=== PATIENT | male | born 1940 | race Caucasian/White ===

== ENCOUNTER 2021-04-22 16:51 | Inpatient (IN) | payer MEDICARE, OTHER ==
[2021-04-22] MEDS ORDERED: SODIUM CHLORIDE 0.9% 1,000 ML IV STA (17:31)
--- NOTE | 2021-04-22 18:13 | XR ---
EXAMINATION TYPE: XR chest 2V DATE OF EXAM: 04/22/2021 COMPARISON: NONE HISTORY: Weakness and abdominal pain. TECHNIQUE: Frontal and lateral views of the chest are obtained. FINDINGS: There is mild prominence of the interstitial markings. No focal consolidation pleural effu sarahi, or pneumothorax seen. The cardiac silhouette size is mildly enlarged. The osseous structures are intact. IMPRESSION: Mild interstitial edema versus atelectasis.
--- NOTE | 2021-04-22 18:15 | XR ---
EXAM: Abdomen radiograph. HISTORY: Pain. TECHNIQUE: Supine AP view. COMPARISON: None available FINDINGS: There are nondilated bowel loops with a nonobstructive pattern. There are no pathologic calcification s. No acute osseous abnormality seen. Cholecystectomy clips and atherosclerotic calcifications seen. Small to moderate amount of colonic stool. IMPRESSION: Stool burden. Otherwise no acute process.
--- NOTE | 2021-04-22 18:29 | ED ---
Recheck HPI - General Chief Complaint: Recheck/Abnormal Lab/Rx Stated Complaint: Weakness, periods of unresponsive, parkinsons Time Seen by Provider: 04/22/21 17:29 Source: patient, RN notes reviewed Mode of arrival: wheelchair Limitations: no limitations - History of Present Illness Initial Comments: Patient is an 81-year-old male that presents to the emergency department complaining of generalized weakness and constipation. Patient was recently seen at [facility] where he was admitted for several days for constipation. He was discharged home with stool softeners and then he went back for the same complaint. They noted that they gave more stool softeners and some home again. Notes that they brought him here to get a second opinion and reevaluation. Patient was otherwise well-appearing. He did have a history of Parkinson's which she goes to [facility] for. She denied any other issues or complaints. He was resting comfortably in bed. He denied chest pain shortness of breath headache nausea vomiting diarrhea fever fatigue chills. - Related Data Home Medications Medication Instructions Recorded Confirmed Amoxicillin 875 mg PO BID 04/22/21 04/22/21 Aspirin EC [Ecotrin Low Dose] 81 mg PO DAILY 04/22/21 04/22/21 Carbidopa-Levodopa 25-100 mg 2.5 tab PO QID 04/22/21 04/22/21 [Sinemet 25-100] Ibuprofen [Motrin] 600 mg PO Q6H PRN 04/22/21 04/22/21 Insulin Glargine,Hum.rec.anlog 16 unit SQ DAILY 04/22/21 04/22/21 [Lantus Solostar Pen] Lisinopril [Zestril] 10 mg PO DAILY 04/22/21 04/22/21 Multivit-Min/FA/Lycopen/Lutein 1 tab PO DAILY 04/22/21 04/22/21 [Centrum Silver Men Tablet] Pioglitazone HCl 15 mg PO DAILY 04/22/21 04/22/21 Tamsulosin HCl [Flomax] 0.4 mg PO DAILY 04/22/21 04/22/21 bisacodyL [Dulcolax] 10 mg PO DAILY PRN 04/22/21 04/22/21 metFORMIN HCL ER [Glucophage XR] 1,000 mg PO BID 04/22/21 04/22/21 Allergies Allergy/AdvReac Type Severity Reaction Status Date / Time honey Allergy Unknown Verified 04/22/21 17:09 scallops Allergy Unknown Verified 04/22/21 17:09 Review of Systems ROS Statement: Those systems with pertinent positive or pertinent negative responses have been documented in the HPI. ROS Other: All systems not noted in ROS Statement are negative. Past Medical History Past Medical History: Diabetes Mellitus Additional Past Medical History / Comment(s): parkinsons disease History of Any Multi-Drug Resistant Organisms: None Reported Past Surgical History: Cholecystectomy Past Psychological History: No Psychological Hx Reported Smoking Status: Never smoker Past Alcohol Use History: None Reported Past Drug Use History: None Reported General Exam Limitations: no limitations General appearance: alert, in no apparent distress Head exam: Present: atraumatic, normocephalic, normal inspection Eye exam: Present: normal appearance, PERRL, EOMI. Absent: scleral icterus, conjunctival injection, periorbital swelling ENT exam: Present: normal exam, mucous membranes moist Neck exam: Present: normal inspection Respiratory exam: Present: normal lung sounds bilaterally. Absent: respiratory distress, wheezes, rales, rhonchi, stridor Cardiovascular Exam: Present: regular rate, normal rhythm, normal heart sounds. Absent: systolic murmur, diastolic murmur, rubs, gallop, clicks GI/Abdominal exam: Present: soft, tenderness (Generalized throughout), normal esther wel sounds. Absent: distended, guarding, rebound, rigid Extremities exam: Present: normal inspection, full ROM, normal capillary refill. Absent: tenderness, pedal edema, joint swelling, calf tenderness Neurological exam: Present: alert, oriented X3 Psychiatric exam: Present: normal affect, normal mood Skin exam: Present: warm, dry, intact, normal color. Absent: rash Course Vital Signs 04/22/21 17:09 Temperature 98.9 F Pulse Rate 63 Respiratory 20 Rate Blood Pressure 179/74 O2 Sat by Pulse 96 Oximetry Medical Decision Making - Medical Decision Making 81-year-old male complaining of generalized weakness and constipation. Labs, KUB, chest x-ray, 1 L normal saline ordered. labs today are unremarkable. Chest x-ray shows no acute cardiopulmonary process. KUB shows stool burden but nonobstructive bowel gas pattern. Results and reports requested from [facility]. Reports from [facility] arrived. CT of the head and brain without contrast shows no acute intracranial abnormality. Chest x-ray shows no acute cardiopulmonary abnormality. CT of the abdomen and pelvis shows constipation with rectal fecal impaction. Appendix not seen. No sign of thickened appendix. Mild subsegmental atelectasis and scarring at the lung bases. Labs show labs within normal limits. All these results were from 04/10/2021 and 04/20/[address] Lujan, patient will be admitted per - Lab Data Result diagrams: 04/22/21 18:29 04/22/21 18:29 Lab Results 04/22/21 04/22/21 04/22/21 Range/Units 18:29 18:29 18:29 WBC 8.6 (3.8-10.6) k/uL RBC 5.09 (4.30-5.90) m/uL Hgb 15.6 (13.0-17.5) gm/dL Hct 46.5 (39.0-53.0) % MCV 91.4 (80.0-100.0) fL MCH 30.7 (25.0-35.0) pg MCHC 33.6 (31.0-37.0) g/dL RDW 12.8 (11.5-15.5) % Plt Count 217 (150-450) k/uL MPV 6.9 Neutrophils % 79 % Lymphocytes % 12 % Monocytes % 6 % Eosinophils % 3 % Basophils % 0 % Neutrophils # 6.8 (1.3-7.7) k/uL Lymphocytes # 1.0 (1.0-4.8) k/uL Monocytes # 0.5 (0-1.0) k/uL Eosinophils # 0.2 (0-0.7) k/uL Basophils # 0.0 (0-0.2) k/uL PT 9.8 (9.0-12.0) sec INR 0.9 (<1.2) APTT 22.2 (22.0-30.0) sec Sodium (137-145) mmol/L Potassium (3.5-5.1) mmol/L Chloride (98-107) mmol/L Carbon Dioxide (22-30) mmol/L Anion Gap mmol/L BUN (9-20) mg/dL Creatinine (0.66-1.25) mg/dL Est GFR (CKD-EPI)AfAm (>60 ml/min/1.73 sqM) Est GFR (CKD-EPI)NonAf (>60 ml/min/1.73 sqM) Glucose (74-99) mg/dL Plasma Lactic Acid Cricket (0.7-2.0) mmol/L Calcium (8.4-10.2) mg/dL Magnesium (1.6-2.3) mg/dL Total Bilirubin (0.2-1.3) mg/dL AST (17-59) U/L ALT (4-49) U/L Alkaline Phosphatase (38-126) U/L Troponin I (0.000-0.034) ng/mL Total Protein (6.3-8.2) g/dL Albumin (3.5-5.0) g/dL Urine Color Yellow Urine Appearance Clear (Clear) Urine pH 6.0 (5.0-8.0) Ur Specific [place] 1.035 (1.001-1.035) Urine Protein 2+ H (Negative) Urine Glucose (UA) Negative (Negative) Urine Ketones Negative (Negative) Urine Blood Trace H (Negative) Urine Nitrite Negative (Negative) Urine Bilirubin Negative (Negative) Urine Urobilinogen <2.0 (<2.0) mg/dL Ur Leukocyte Esterase Negative (Negative) Urine RBC 1 (0-5) /hpf Urine WBC <1 (0-5) /hpf Hyaline Casts 1 (0-2) /lpf Urine Mucus Rare H (None) /hpf 04/22/21 04/22/21 04/22/21 Range/Units 18:29 18:29 18:29 WBC (3.8-10.6) k/uL RBC (4.30-5.90) m/uL Hgb (13.0-17.5) gm/dL Hct (39.0-53.0) % MCV (80.0-100.0) fL MCH (25.0-35.0) pg MCHC (31.0-37.0) g/dL RDW (11.5-15.5) % Plt Count (150-450) k/uL MPV Neutrophils % % Lymphocytes % % Monocytes % % Eosinophils % % Basophils % % Neutrophils # (1.3-7.7) k/uL Lymphocytes # (1.0-4.8) k/uL Monocytes # (0-1.0) k/uL Eosinophils # (0-0.7) k/uL Basophils # (0-0.2) k/uL PT (9.0-12.0) sec INR (<1.2) APTT (22.0-30.0) sec Sodium 134 L (137-145) mmol/L Potassium 5.1 (3.5-5.1) mmol/L Chloride 97 L (98-107) mmol/L Carbon Dioxide 26 (22-30) mmol/L Anion Gap 11 mmol/L BUN 24 H (9-20) mg/dL Creatinine 0.85 (0.66-1.25) mg/dL Est GFR (CKD-EPI)AfAm >90 (>60 ml/min/1.73 sqM) Est GFR (CKD-EPI)NonAf 81 (>60 ml/min/1.73 sqM) Glucose 109 H (74-99) mg/dL Plasma Lactic Acid Cricket 1.0 (0.7-2.0) mmol/L Calcium 9.4 (8.4-10.2) mg/dL Magnesium 1.9 (1.6-2.3) mg/dL Total Bilirubin 0.9 (0.2-1.3) mg/dL AST 30 (17-59) U/L ALT 9 (4-49) U/L Alkaline Phosphatase 108 (38-126) U/L Troponin I <0.012 (0.000-0.034) ng/mL Total Protein 7.4 (6.3-8.2) g/dL Albumin 4.3 (3.5-5.0) g/dL Urine Color Urine Appearance (Clear) Urine pH (5.0-8.0) Ur Specific [place] (1.001-1.035) Urine Protein (Negative) Urine Glucose (UA) (Negative) Urine Ketones (Negative) Urine Blood (Negative) Urine Nitrite (Negative) Urine Bilirubin (Negative) Urine Urobilinogen (<2.0) mg/dL Ur Leukocyte Esterase (Negative) Urine RBC (0-5) /hpf Urine WBC (0-5) /hpf Hyaline Casts (0-2) /lpf Urine Mucus (None) /hpf - EKG Data -: EKG Interpreted by Pr EKG shows normal: sinus rhythm Rate: normal EKG Comments: Ventricular rate 61 bpm, CT interval 164 ms, QRS duration 90 ms, QTC 418 ms, PRT axes -12/-16/-3. Normal sinus rhythm, normal ECG. - Radiology Data Radiology results: report reviewed, image reviewed KUB shows stool burden. Otherwise no acute process. Chest x-ray: Mild interstitial edema versus atelectasis. Disposition Clinical Impression: Weakness, Confusion Disposition: ADMITTED IP TO THIS HOSP Condition: Stable Is patient prescribed a controlled substance at d/c from ED?: No Referrals: Sincree Ewing MD [Primary Care Provider] - 1-2 days Time of Disposition: 19:55
[2021-04-22 18:56] LABS: Appearance,Urine Clear (Clear); Bilirubin,Urine Negative (Negative); Blood,Urine Trace (Negative); Color,Urine Yellow; Glucose,Urine (UA) Negative (Negative); Hyaline Casts,Urine 1 /lpf (0-2); Ketones,Urine Negative (Negative); Leukocyte Esterase,Urine Negative (Negative); Mucus,Urine Rare /hpf; Nitrite,Urine Negative (Negative); Protein,Urine 2+ (Negative); RBC,Urine 1 /hpf (0-5); Specific Gravity,Urine 1.035 (1.001-1.035); Urobilinogen,Urine <2.0 mg/dL (<2.0); WBC,Urine <1 /hpf (0-5)
[2021-04-22 19:05] LABS: Basophils % (A) 0 %; Eosinophils # (A) 0.2 k/uL (0-0.7); Eosinophils % (A) 3 %; HCT 46.5 % (39.0-53.0); HGB 15.6 gm/dL (13.0-17.5); Lymphocytes % (A) 12 %; MCH 30.7 pg (25.0-35.0); MCHC 33.6 g/dL (31.0-37.0); MCV 91.4 fL (80.0-100.0); Mean Platelet Volume 6.9; Monocytes # (A) 0.5 k/uL (0-1.0); Monocytes % (A) 6 %; Neutrophils # (A) 6.8 k/uL (1.3-7.7); Neutrophils % (A) 79 %; Platelet Count 217 k/uL (150-450); RBC 5.09 m/uL (4.30-5.90); RDW 12.8 % (11.5-15.5); WBC 8.6 k/uL (3.8-10.6)
[2021-04-22 19:12] LABS: INR 0.9 (<1.2); Partial Thromboplastin Time 22.2 sec (22.0-30.0); Prothrombin Time 9.8 sec (9.0-12.0)
[2021-04-22 19:34] LABS: ALT 9 U/L (4-49); AST 30 U/L (17-59); African American GFR (CKD) >90 (>60 ml/min/1.73 sqM); Albumin 4.3 g/dL (3.5-5.0); Alkaline Phosphatase 108 U/L (38-126); Anion Gap 11 mmol/L; Blood Urea Nitrogen 24 mg/dL (9-20); Calcium 9.4 mg/dL (8.4-10.2); Carbon Dioxide 26 mmol/L (22-30); Chloride 97 mmol/L (98-107); Glucose 109 mg/dL (74-99); Magnesium 1.9 mg/dL (1.6-2.3); Non-African American GFR(CKD) 81 (>60 ml/min/1.73 sqM); Potassium 5.1 mmol/L (3.5-5.1); Sodium 134 mmol/L (137-145); Total Bilirubin 0.9 mg/dL (0.2-1.3); Total Protein 7.4 g/dL (6.3-8.2)
[2021-04-22] MEDS ORDERED: NALOXONE 0.4 MG/ML 1 ML VIAL IV PRN (19:51)
[2021-04-22] MEDS ORDERED: MORPHINE SULFATE 4 MG/ML SYRINGE IV PRN (19:51)
[2021-04-22] MEDS: SODIUM CHLORIDE 0.9% 1,000 ML IV SCH (20:15)
--- NOTE | 2021-04-22 20:40 | CT ---
EXAM: CT brain wo con CLINICAL HISTORY: Weakness. COMPARISON: None TECHNIQUE: Contiguous axial noncontrast images of the brain were obtained. Coronal and sagittal refor mats were generated and reviewed. Automated dose control was used for this exam. FINDINGS: There is no evidence for intracranial hemorrhage, mass effect or midline shift. There is mild white m atter disease and parenchymal volume loss. Ventricular size and configuration is within normal limits for degree of parenchymal volume. The paranasal sinuses are clear. The mastoid air cells are clear. No evidence for calvarial fracture. IMPRESSION: No acute intracranial abnormality.
[2021-04-23] MEDS ORDERED: IBUPROFEN 600 MG TAB PO PRN (01:47)
[2021-04-23] MEDS ORDERED: bisacodyL 5 MG TABLET.DR PO PRN (01:47)
[2021-04-23 02:38] LABS: Glucose,Whole Blood 93 mg/dL (75-99)
[2021-04-23] MEDS: SODIUM CHLORIDE 0.9% 1,000 ML IV SCH ×2 (05:16→15:10)
[2021-04-23 07:32] LABS: Glucose,Whole Blood 95 mg/dL (75-99)
[2021-04-23] MEDS ORDERED: lisinopriL 10 MG TAB PO SCH (09:00)
[2021-04-23] MEDS ORDERED: INSULIN DETEMIR (LEVEMIR) 100 UNIT/ML SYR SQ SCH (09:00)
[2021-04-23] MEDS: CARBIDOPA-LEVODOPA 25-100 MG 1 EACH TAB PO SCH ×4 (09:33→20:48)
[2021-04-23] MEDS: TAMSULOSIN 0.4 MG CAP.ER.24H PO SCH (09:34)
[2021-04-23] MEDS: metFORMIN 500 MG TAB PO SCH ×2 (09:34→20:49)
[2021-04-23] MEDS: PIOGLITAZONE 15 MG TAB PO SCH (09:34)
[2021-04-23] MEDS: MULTIVITAMINS, THERA 1 EACH TAB PO SCH (09:34)
[2021-04-23] MEDS: ASPIRIN 81 MG PO SCH (09:35)
[2021-04-23] MEDS: AMOXICILLIN 875 MG TAB PO SCH ×2 (09:35→20:48)
[2021-04-23 12:14] LABS: Glucose,Whole Blood 123 mg/dL (75-99)
[2021-04-23] MEDS ORDERED: ONDANSETRON 4 MG/2 ML VIAL IVP PRN (12:44)
[2021-04-23] MEDS ORDERED: CALCIUM CARBONATE 500 MG CHEWABLE PO PRN (12:44)
[2021-04-23] MEDS ORDERED: LACTULOSE 20 GM/30 ML CUP PO PRN (12:44)
[2021-04-23] MEDS ORDERED: LORazepam 0.5 MG TAB PO PRN (12:44)
[2021-04-23] MEDS ORDERED: MELATONIN 3 MG TABLET PO PRN (12:44)
--- NOTE | 2021-04-23 13:10 | P.CNNES ---
History of Present Illness Consult date: 04/23/21 Requesting physician: Michele Roberts Reason for Consult: Weakness, Parkinson's History of Present Illness: Patient is a 81-year-old male with history of Parkinson's disease came to the hospital yesterday at 4:51 PM for evaluation of generalized weakness and constipation. Patient states that he has not been feeling good and on for the last 2-3 days. He could not explain what he means by not feeling well. Denies any chest pain. Denies any numbness tingling any visual problems or dysphagia. No shortness of breath, chest pain, neck pain or low back pain. Patient does admit of having pain in back of the legs where he reports a pressure. Patient denies any stroke symptoms. Patient denies headache. Vital signs on arrival blood pressure 179/74, pulse rate 63 temperature 98.9. The blood pressure has been staying high around 192/81. Patient's blood test shows normal CBC, PT/PTT, sodium 134 potassium 5.1, normal renal functions. Hepatic panel is normal, troponin negative, UA negative. Tellez virus PCR ne gative. CT head showed no acute intracranial abnormality. I reviewed computed tomography scan of head, agree with the findings. Chest x-ray showed mild interstitial edema versus atelectasis. EKG with normal sinus rhythm. Patient's home medications include Flomax, aspirin 81 mg, insulin, Sinemet 25/100, 2.5 tablet 4 times a day, Actos, metformin, lisinopril, ibuprofen. Patient has history of diabetes for last 7-8 years. He has Parkinson's disease for 3 years. At present he lives with his . He has 3 kids. Denies any tobacco or alcohol use. Review of Systems As mentioned in HPI. All other review of systems reviewed and noncontributory. Patient does not use any assistive device. He does have a walker, but does not use it. Had fell 3 times over the last couple of years. The last fall was about 3 years ago. Past Medical History Past Medical History: Diabetes Mellitus Additional Past Medical History / Comment(s): parkinsons disease History of Any Multi-Drug Resistant Organisms: Unobtainable Past Surgical History: Cholecystectomy Past Psychological History: Unable to Obtain Smoking Status: Unknown if ever smoked Past Alcohol Use History: Unable to Obtain Past Drug Use History: Unable to Obtain Medications and Allergies Home Medications Medication Instructions Recorded Confirmed Type Amoxicillin 875 mg PO BID 04/22/21 04/22/21 History Aspirin EC [Ecotrin Low Dose] 81 mg PO DAILY 04/22/21 04/22/21 History Carbidopa-Levodopa 25-100 mg 2.5 tab PO QID 04/22/21 04/22/21 History [Sinemet 25-100] Ibuprofen [Motrin] 600 mg PO Q6H PRN 04/22/21 04/22/21 History Insulin Glargine,Hum.rec.anlog 16 unit SQ DAILY 04/22/21 04/22/21 History [Lantus Solostar Pen] Lisinopril [Zestril] 10 mg PO DAILY 04/22/21 04/22/21 History Multivit-Min/FA/Lycopen/Lutein 1 tab PO DAILY 04/22/21 04/22/21 History [Centrum Silver Men Tablet] Pioglitazone HCl 15 mg PO DAILY 04/22/21 04/22/21 History Tamsulosin HCl [Flomax] 0.4 mg PO DAILY 04/22/21 04/22/21 History bisacodyL [Dulcolax] 10 mg PO DAILY PRN 04/22/21 04/22/21 History metFORMIN HCL ER [Glucophage XR] 1,000 mg PO BID 04/22/21 04/22/21 History Allergies Allergy/AdvReac Type Severity Reaction Status Date / Time honey Allergy Unknown Verified 04/22/21 17:09 scallops Allergy Unknown Verified 04/22/21 17:09 Physical Examination - Vital Signs Vital Signs: Vital Signs Temp Pulse Pulse Resp BP BP BP 04/23/21 07:00 98.3 F 64 16 199/75 04/23/21 02:00 98.1 F 67 18 192/81 04/22/21 23:00 67 18 04/22/21 22:28 98.5 F 69 18 189/69 04/22/21 20:31 98.4 F 68 18 169/87 04/22/21 17:09 98.9 F 63 20 179/74 Pulse Ox 04/23/21 07:00 97 04/23/21 02:00 92 L 04/22/21 23:00 04/22/21 22:28 93 L 04/22/21 20:31 97 04/22/21 17:09 96 Intake and Output 04/22/21 04/23/21 04/23/21 22:59 06:59 14:59 Other: Voiding Method Diaper Diaper Incontinent # Voids 2 1 Weight 95.254 kg 95.254 kg Patient is an elderly male, in no acute distress. Patient is alert awake oriented to time place and person. Patient knows it is April, but could not come up with the year. States "I can't seem to focus". He knows his age and date of . Also knows that he is in [facility] in [facility] and name of the current president. Speech and language functions are normal. Patient has slightly nasal tone to his voice. Attention, concentration and fund of knowledge is adequate. On cranial examination, pupils are round and reacting to light, visual sherman are full on confrontation, extraocular muscles are intact with no nystagmus. Face is symmetric, tongue protrudes to the midline. Palatal elevation and sensation normal, hearing is slightly decreased and shoulder shrug normal, facial sensation normal. Shoulder shrug normal. On muscle strength testing, there is no pronator drift and the strength is normal in arms and legs distally and proximally. Deep tendon reflexes are trace in the upper limbs, 1+ in the lower limbs and plantars are flat. Sensory to touch is equal with no neglect. Cerebellar function showed no ataxia for [id number] testing. No dysdiadochokinesia. Tone is mildly increased bilaterally and bulk of muscles normal. No tremors at rest. Patient has very mild tremulousness for [id number] testing and of outstretched hands. Gait not checked. On general examination, there is no carotid bruit or murmur, S1-S2 audible. Abdomen is soft nontender. Chest is clear. Peripheral pulses are present. Patient has moderate peripheral edema. Results - Laboratory Findings CBC and BMP: 04/22/21 18:29 04/22/21 18:29 Abnormal Lab Findings: Abnormal Labs 04/22/21 04/22/21 18:29 18:29 Sodium 134 L Chloride 97 L BUN 24 H Glucose 109 H Urine Protein 2+ H Urine Blood Trace H Urine Mucus Rare H Assessment and Plan Assessment: * Parkinson's disease, stable at this time. Current examination reveals fairly controlled parkinsonian symptoms. * Generalized weakness, unclear etiology. Examination is nonfocal. Patient denies any focal symptoms. * Diabetes Plan: * Patient's Parkinson's is fairly well controlled. We will continue Sinemet 25/100, 2.5 tablets 4 times a day. * We will check B12, folate, TSH and hemoglobin A1c. * PT OT evaluate gait. * Continue aspirin 81 mg daily. * Thank you for the consult.
[2021-04-23] MEDS: PSYLLIUM HUSK 100% 6 GM PACKET PO SCH ×2 (13:45→20:47)
[2021-04-23] MEDS: LACTATED RINGERS 1,000 ML IV SCH (15:53)
--- NOTE | 2021-04-23 17:14 | P.HPIM ---
History of Present Illness H&P Date: 04/23/21 Chief Complaint: Weak and tired This is a pleasant 81-year-old patient, follows with Dr. Sincere Mcguire. Patient is brought into the ER by his family. Complaining of generalized weakness and constipation. Patient was recently admitted with [facility] where he was there for many days for constipation. He was discharged with stool softeners admin back to the same complaint. The family wanted to get a second opinion and reevaluation. Patient does have Parkinson's for which she goes to [facility]. Patient just feels a bit tired. Cc as decreased appetite. Denies any respiratory urinary symptoms. Patient somewhat forgetful. Does not know the year and does not bother there was a hospital for example. Denies any kind of distress. Does have a walker. Review of systems: GEN.: Tired EYES: None HEENT: None NECK: None RESPIRATORY: None CARDIOVASCULAR: None GASTROINTESTINAL: [Constipation GENITOURINARY: None MUSCULOSKELETAL: Joint pains LYMPHATICS: None HEMATOLOGICAL: None PSYCHIATRY: Forgetful NEUROLOGICAL: Uses a walker Past medical history to include: Parkinson's disease, diabetes mellitus type 2, cognitive impairment, uses a walker, BPH, hypertension Social history: Patient lives with spouse and daughter. Does have a walker. Denies smoking alcohol Family history: Patient cannot tell Physical examination: VITAL SIGNS: 98.3, 64, 16, 199/75, 97% on room air. GENERAL: BMI 28.5, sitting up chair, awake comfortable. EYES: Pupils equal. Conjunctiva normal. HEENT: External appearance of nose and ears normal, oral cavity grossly normal. NECK: JVD not raised; masses not palpable. HEART: First and second heart sounds are normal; no edema. LUNGS: Respiratory rate normal; clear to auscultation. ABDOMEN: Soft, nontender, liver spleen not palpable, no masses palpable. PSYCH: Patient knows his name, knows that in the hospital. Does not know the year. Not sure why he is here.l. MUSCULAR skeletal: Evidence of OA NEUROLOGICAL: [Cranial nerves grossly intact; no facial asymmetry, slow movement of limbs. No significant rigidity. Minimal tremor if any. LYMPHATICS: No lymph nodes palpable in the axilla and neck INVESTIGATIONS, reviewed in the clinical context: White count 8.6 hemoglobin 15.6 platelets 217 potassium 5.1 BUN 24 creatinine 0.85 Troponin I less than 0.012 Coronavirus [PCR]: Not detected EKG tracing personally reviewed by me-normal sinus rhythm. Rate 61 Chest x-ray film personally reviewed by me-cardiomegaly. Some interstitial markings Assessment and plan: -Acute on chronic medical debility possibly from Parkinson's disease. Get neurological opinion. PTOT. -Parkinson's disease Sinemet 12.5, 4 times a day -Chronic constipation. Patient has decreased oral intake. Encourage oral intake. 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 -BPH Flomax 0.4 mg daily -Diabetes mellitus type 2 Actos 50 mg daily, metformin ER thousand milligrams twice a day. We'll hold off patient's Lantus for now as she was running on the lower side. -Essential hypertension, uncontrolled Change in medications to Zestoretic 20/12.5, 1 tablet twice a day Consultation neurology. PTOT. Fall precautions. Resume home medications. Hold Levemir. Follow Accu-Cheks. No clinical evidence of any infection. Past Medical History Past Medical History: Diabetes Mellitus Additional Past Medical History / Comment(s): parkinsons disease History of Any Multi-Drug Resistant Organisms: Unobtainable Past Surgical History: Cholecystectomy Past Psychological History: Unable to Obtain Smoking Status: Unknown if ever smoked Past Alcohol Use History: Unable to Obtain Past Drug Use History: Unable to Obtain Medications and Allergies Home Medications Medication Instructions Recorded Confirmed Type Amoxicillin 875 mg PO BID 04/22/21 04/22/21 History Aspirin EC [Ecotrin Low Dose] 81 mg PO DAILY 04/22/21 04/22/21 History Carbidopa-Levodopa 25-100 mg 2.5 tab PO QID 04/22/21 04/22/21 History [Sinemet 25-100] Ibuprofen [Motrin] 600 mg PO Q6H PRN 04/22/21 04/22/21 History Insulin Glargine,Hum.rec.anlog 16 unit SQ DAILY 04/22/21 04/22/21 History [Lantus Solostar Pen] Lisinopril [Zestril] 10 mg PO DAILY 04/22/21 04/22/21 History Multivit-Min/FA/Lycopen/Lutein 1 tab PO DAILY 04/22/21 04/22/21 History [Centrum Silver Men Tablet] Pioglitazone HCl 15 mg PO DAILY 04/22/21 04/22/21 History Tamsulosin HCl [Flomax] 0.4 mg PO DAILY 04/22/21 04/22/21 History bisacodyL [Dulcolax] 10 mg PO DAILY PRN 04/22/21 04/22/21 History metFORMIN HCL ER [Glucophage XR] 1,000 mg PO BID 04/22/21 04/22/21 History Allergies Allergy/AdvReac Type Severity Reaction Status Date / Time honey Allergy Unknown Verified 04/22/21 17:09 scallops Allergy Unknown Verified 04/22/21 17:09 Physical Exam Vitals: Vital Signs Temp Pulse Pulse Resp BP BP BP 04/23/21 15:00 97.7 F 63 16 154/75 04/23/21 07:00 98.3 F 64 16 199/75 04/23/21 02:00 98.1 F 67 18 192/81 04/22/21 23:00 67 18 04/22/21 22:28 98.5 F 69 18 189/69 04/22/21 20:31 98.4 F 68 18 169/87 04/22/21 17:09 98.9 F 63 20 179/74 Pulse Ox 04/23/21 15:00 94 L 04/23/21 07:00 97 04/23/21 02:00 92 L 04/22/21 23:00 04/22/21 22:28 93 L 04/22/21 20:31 97 04/22/21 17:09 96 Intake and Output 04/23/21 04/23/21 04/23/21 06:59 14:59 22:59 Other: Voiding Method Diaper Diaper Incontinent # Voids 2 1 2 Weight 95.254 kg Results CBC & Chem 7: 04/22/21 18:29 04/22/21 18:29 Labs: Abnormal Lab Results - Last 24 Hours (Table) 04/22/21 04/22/21 04/23/21 Range/Units 18:29 18:29 12:12 Sodium 134 L (137-145) mmol/L Chloride 97 L (98-107) mmol/L BUN 24 H (9-20) mg/dL Glucose 109 H (74-99) mg/dL POC Glucose (mg/dL) 123 H (75-99) mg/dL Urine Protein 2+ H (Negative) Urine Blood Trace H (Negative) Urine Mucus Rare H (None) /hpf Thrombosis Risk Factor Assmnt - Choose All That Apply Each Factor Represents 1 point: Obesity (BMI >25) Each Risk Factor Represents 3 Points: Age 75 years or older Thrombosis Risk Factor Assessment Total Risk Factor Score: 4 Thrombosis Risk Factor Assessment Level: Moderate Risk
[2021-04-23] MEDS: ENOXAPARIN 40 MG/0.4 ML SYRINGE SQ SCH (17:23)
[2021-04-23 17:30] LABS: Glucose,Whole Blood 131 mg/dL (75-99)
[2021-04-23 20:48] LABS: Glucose,Whole Blood 121 mg/dL (75-99)
[2021-04-23] MEDS: LISINOPRIL-HCTZ 20-12.5 MG 1 EACH TAB PO SCH (20:49)
[2021-04-24] MEDS: LACTATED RINGERS 1,000 ML IV SCH (03:59)
--- NOTE | 2021-04-24 05:34 | P.CONS ---
History of Present Illness - Chief Complaint Gait disturbance, Parkinson's exacerbation - History of Present Illness I had the opportunity to see patient for inpatient rehab consultation with regard Parkinson exacerbation. He was admitted to [facility] April 22 weakness and constipation. Recently seen a [facility]. Admitted by Dr. Loaiza. Seen by neurology, Dr. Jamil for the Parkinson. Head CT negative. KUB with stool. Chest x-ray with atelectasis. Started therapy. PT reports moderate a ssistance for bed mobility and maximal assistance for transfers and gait 50 feet with roller walker. OT prescribed. Previous functional history as elicited from patient: 81-year-old right-handed white male who is lives and 2 floor home with . Both are retired. does cooking and laundry. Patient independent with driving, standing shower and gait without device. PCP Dr. Sincere Mcguire. Denies tobacco or alcohol. Review of Systems Review of systems: ENT: Denies sneezes or discharge. Eyes: Denies discharge or photophobia. Cardiac: Denies chest pain or palpitation. Pulmonary: Denies cough or shortness of breath. Gastrointestinal: Denies nausea, emesis, constipation, diarrhea. Genitourinary: Denies discharge or frequency. Musculoskeletal: Denies muscle or bone aches. Neurologic: Diffuse weakness and rigidity. Endocrine: Denies shakes or sweats. Oncology: Denies cancers. Dermatologic: Denies rash, itching, pruritus. ALLERGY/immunology: Denies sneezes, rashes. Past Medical History Past Medical History: Diabetes Mellitus Additional Past Medical History / Comment(s): parkinsons disease History of Any Multi-Drug Resistant Organisms: Unobtainable Past Surgical History: Cholecystectomy Past Psychological History: Unable to Obtain Smoking Status: Unknown if ever smoked Past Alcohol Use History: Unable to Obtain Past Drug Use History: Unable to Obtain Medications and Allergies Home Medications Medication Instructions Recorded Confirmed Type Amoxicillin 875 mg PO BID 04/22/21 04/22/21 History Aspirin EC [Ecotrin Low Dose] 81 mg PO DAILY 04/22/21 04/22/21 History Carbidopa-Levodopa 25-100 mg 2.5 tab PO QID 04/22/21 04/22/21 History [Sinemet 25-100] Ibuprofen [Motrin] 600 mg PO Q6H PRN 04/22/21 04/22/21 History Insulin Glargine,Hum.rec.anlog 16 unit SQ DAILY 04/22/21 04/22/21 History [Lantus Solostar Pen] Lisinopril [Zestril] 10 mg PO DAILY 04/22/21 04/22/21 History Multivit-Min/FA/Lycopen/Lutein 1 tab PO DAILY 04/22/21 04/22/21 History [Centrum Silver Men Tablet] Pioglitazone HCl 15 mg PO DAILY 04/22/21 04/22/21 History Tamsulosin HCl [Flomax] 0.4 mg PO DAILY 04/22/21 04/22/21 History bisacodyL [Dulcolax] 10 mg PO DAILY PRN 04/22/21 04/22/21 History metFORMIN HCL ER [Glucophage XR] 1,000 mg PO BID 04/22/21 04/22/21 History Allergies Allergy/AdvReac Type Severity Reaction Status Date / Time honey Allergy Unknown Verified 04/22/21 17:09 scallops Allergy Unknown Verified 04/22/21 17:09 Physical Exam Vitals: Vital Signs Temp Pulse Resp BP BP Pulse Ox 04/24/21 05:28 70 199/83 04/24/21 02:00 17 04/24/21 01:42 97.6 F 70 24 197/76 94 L 04/23/21 20:14 97.5 F L 58 L 17 151/81 96 04/23/21 20:00 63 16 04/23/21 15:00 97.7 F 63 16 154/75 94 L 04/23/21 07:00 98.3 F 64 16 199/75 97 Intake and Output 04/23/21 04/23/21 04/24/21 14:59 22:59 06:59 Intake Total 500 Balance 500 Intake: Oral 500 Other: Voiding Method Diaper Diaper Diaper Incontinent Incontinent Incontinent # Voids 1 3 Skin: Atrophic, intact. General: Medium build and comfortable appearance. Head: Normocephalic, atraumatic. Eyes: Symmetric. Pupils equal round. Ears: Symmetric. Hearing within normal limits. Mouth: Clear. Neck: Supple. Carotid without bruit. Cardiac: Regular rate and rhythm. Lungs: Clear anteriorly and posteriorly. Abdomen: Soft active nontender. Extremities: Normal tone. 1-2+ edema lower extremities. Neurological: Mental status: Alert, cooperative, pleasant. Cranial nerves: Symmetric facial tone and trapezius. Motor: Active movement all 4 limbs. Arms about antigravity in legs less than antigravity. Sensation: Intact throughout. DTRs: Symmetric and equal throughout. Mobility: Sits with physical assistance. Results CBC & Chem 7: 04/22/21 18:29 04/22/21 18:29 Labs: Abnormal Lab Results - Last 24 Hours (Table) 04/23/21 04/23/21 04/23/21 Range/Units 12:12 16:13 17:29 POC Glucose (mg/dL) 123 H 131 H (75-99) mg/dL Hemoglobin A1c 6.7 H (4.0-6.0) % 04/23/21 Range/Units 20:46 POC Glucose (mg/dL) 121 H (75-99) mg/dL Hemoglobin A1c (4.0-6.0) % Assessment and Plan (1) Confusion Current Visit: Yes Status: Acute Code(s): R41.0 - DISORIENTATION, UNSPECIFIED SNOMED Code(s): 518381499 (2) Weakness Current Visit: Yes Status: Acute Code(s): R53.1 - WEAKNESS SNOMED Code(s): 09164279 Plan: Impression: 1. Gait disturbance due to Parkinson's exacerbation with weakness and confusion. 2. Diabetes. comments and plan: At this time PT is ongoing and safety concerns are noted. OT prescribed. We'll require OT notes for possible inpatient rehab appears likely in this patient. He is agreeable.
[2021-04-24] MEDS ORDERED: METOPROLOL TARTRATE 25 MG TAB PO SCH (05:45)
[2021-04-24 07:19] LABS: Glucose,Whole Blood 105 mg/dL (75-99)
[2021-04-24] MEDS: ASPIRIN 81 MG PO SCH (08:17)
[2021-04-24] MEDS: CARBIDOPA-LEVODOPA 25-100 MG 1 EACH TAB PO SCH ×2 (08:18→12:10)
[2021-04-24] MEDS: LISINOPRIL-HCTZ 20-12.5 MG 1 EACH TAB PO SCH (08:19)
[2021-04-24] MEDS: metFORMIN 500 MG TAB PO SCH (08:19)
[2021-04-24] MEDS: TAMSULOSIN 0.4 MG CAP.ER.24H PO SCH (08:19)
[2021-04-24] MEDS: ENOXAPARIN 40 MG/0.4 ML SYRINGE SQ SCH (08:20)
[2021-04-24] MEDS: PIOGLITAZONE 15 MG TAB PO SCH (08:20)
[2021-04-24] MEDS: AMOXICILLIN 875 MG TAB PO SCH (08:20)
[2021-04-24] MEDS: MULTIVITAMINS, THERA 1 EACH TAB PO SCH (08:20)
[2021-04-24] MEDS: PSYLLIUM HUSK 100% 6 GM PACKET PO SCH (08:21)
[2021-04-24 08:24] VITALS: RESP 18; TEMP 97.8
[2021-04-24 12:23] LABS: Glucose,Whole Blood 105 mg/dL (75-99)
[2021-04-24] MEDS ORDERED: CYANOCOBALAMIN 1,000 MCG/ML 1 ML VIAL IM ONE (12:47)
--- NOTE | 2021-04-24 14:04 | P.DS ---
Providers Date of admission: 04/24/21 10:53 Expected date of discharge: 04/24/21 Attending physician: Vinnie Loaiza Consults: 04/22/21 19:52 Consult Physician Urgent Consulting Provider: Edenilson Guzmán Consult Reason/Comments: weakness, parkinsons Do you want consulting provider notified?: Yes 04/23/21 12:41 Consult Physician Routine Consulting Provider: David Cruz Consult Reason/Comments: poss ipd rehab Do you want consulting provider notified?: Yes Primary care physician: Sincere Orellana [facility] Course: Chief Complaint: Weak and tired This is a pleasant 81-year-old patient, follows with Dr. Sincere Ewing. Patient is brought into the ER by his family. Complaining of generalized weakness and constipation. Patient was recently admitted with [facility] where he was there for many days for constipation. He was discharged with stool softeners admin back to the same complaint. The family wanted to get a second opinion and reevaluation. Patient does have Parkinson's for which she goes to [facility]. Patient just feels a bit tired. Cc as decreased appetite. Denies any respiratory urinary symptoms. Patient somewhat forgetful. Does not know the year and does not bother there was a hospital for example. Denies any kind of distress. Does have a walker. Patient was seen by Dr. Jamil from neurology. No change in medications. PTOT. Metamucil was added for constipation. Patient oral intake is fair. April 24: Discussed with Dr. Jamil from neurology. Stable for DC 2 rehab. Rehab at [facility]. Eating about 50%. Blood pressure was running high. Medications adjusted. Discussion and discharge planning more than 35 minutes Consultation: Dr. Jamil from neurology Past medical history to include: Parkinson's disease, diabetes mellitus type 2, cognitive impairment, uses a walker, BPH, hypertension Social history: Patient lives with spouse and daughter. Does have a walker. Denies smoking alcohol Family history: Patient cannot tell Physical examination: VITAL SIGNS: 97.8, 63, 18, 1 20 x 76, 97% room air GENERAL:, sitting up chair, awake comfortable. EYES: Pupils equal. Conjunctiva normal. HEENT: External appearance of nose and ears normal, oral cavity grossly normal. NECK: JVD not raised; masses not palpable. HEART: First and second heart sounds are normal; no edema. LUNGS: Respiratory rate normal; clear to auscultation. ABDOMEN: Soft, nontender, liver spleen not palpable, no masses palpable. PSYCH: Patient knows his name, knows that in the hospital. Does not know the year. Not sure why he is here.l. MUSCULAR skeletal: Evidence of OA NEUROLOGICAL: slow movement of limbs. No rigidity. Minimal tremor if any. INVESTIGATIONS, reviewed in the clinical context: CT brain: Unremarkable White count 8.6 hemoglobin 15.6 platelets 217 potassium 5.1 BUN 24 creatinine 0.85 Troponin I less than 0.012 Coronavirus [PCR]: Not detected EKG tracing personally reviewed by me-normal sinus rhythm. Rate 61 Chest x-ray film personally reviewed by me-cardiomegaly. Some interstitial markings Assessment and plan: -Acute on chronic medical debility possibly from Parkinson's disease. . PTOT. For inpatient rehab -Parkinson's disease, stable Sinemet 12.5, 4 times a day -Chronic constipation. Patient has decreased oral intake. Encourage oral intake. 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 -BPH Flomax 0.4 mg daily -Diabetes mellitus type 2 Actos 15 mg daily, metformin ER 500 milligrams twice a day. Insulin discontinued -Essential hypertension, uncontrolled Change in medications to Zestoretic 20/12.5, 1 tablet twice a day, Lopressor 25 twice a day Disposition: Rehab at [facility] Plan - Discharge Summary New Discharge Prescriptions: New Lactulose [Cephulac] 20 gm PO DAILY PRN ml PRN Reason: Constipation Metoprolol Tartrate [Lopressor] 25 mg PO BID tab Melatonin 3 mg PO HS PRN tablet PRN Reason: Insomnia Psyllium Husk 100% [Metamucil Packet] 6 gm PO BID packet Lisinopril-Hctz 20-12.5 mg [Zestoretic 20-12.5] 1 each PO BID tab Continue bisacodyL [Dulcolax] 10 mg PO DAILY PRN PRN Reason: Constipation Tamsulosin HCl [Flomax] 0.4 mg PO DAILY Multivit-Min/FA/Lycopen/Lutein [Centrum Silver Men Tablet] 1 tab PO DAILY Aspirin EC [Ecotrin Low Dose] 81 mg PO DAILY Carbidopa-Levodopa 25-100 mg [Sinemet 25-100 mg] 2.5 tab PO QID Pioglitazone HCl 15 mg PO DAILY Ibuprofen [Motrin] 600 mg PO Q6H PRN PRN Reason: Pain Or Fever > 100.5 Amoxicillin 875 mg PO BID #14 Changed metFORMIN HCL ER [Glucophage XR] 500 mg PO BID #0 Discontinued Insulin Glargine,Hum.rec.anlog [Lantus Solostar Pen] 16 unit SQ DAILY Lisinopril [Zestril] 10 mg PO DAILY Discharge Medication List Aspirin EC [Ecotrin Low Dose] 81 mg PO DAILY 04/22/21 [History] Carbidopa-Levodopa 25-100 mg [Sinemet 25-100 mg] 2.5 tab PO QID 04/22/21 [History] Ibuprofen [Motrin] 600 mg PO Q6H PRN 04/22/21 [History] Multivit-Min/FA/Lycopen/Lutein [Centrum Silver Men Tablet] 1 tab PO DAILY 04/22/21 [History] Pioglitazone HCl 15 mg PO DAILY 04/22/21 [History] Tamsulosin HCl [Flomax] 0.4 mg PO DAILY 04/22/21 [History] bisacodyL [Dulcolax] 10 mg PO DAILY PRN 04/22/21 [History] Amoxicillin 875 mg PO BID #14 04/24/21 [Rx] Lactulose [Cephulac] 20 gm PO DAILY PRN ml 04/24/21 [Rx] Lisinopril-Hctz 20-12.5 mg [Zestoretic 20-12.5] 1 each PO BID tab 04/24/21 [Rx] Melatonin 3 mg PO HS PRN tablet 04/24/21 [Rx] Metoprolol Tartrate [Lopressor] 25 mg PO BID tab 04/24/21 [Rx] Psyllium Husk 100% [Metamucil Packet] 6 gm PO BID packet 04/24/21 [Rx] metFORMIN HCL ER [Glucophage XR] 500 mg PO BID #0 04/24/21 [Rx] Follow up Appointment(s)/Referral(s): Sincere Ewing MD [Primary Care Provider] - As Needed
[2021-04-24 15:32] VITALS: BP 188/74; PULSE 64
--- NOTE | 2021-04-24 16:57 | P.PN ---
Subjective Progress Note Date: 04/24/21 Patient was seen for a follow-up. Patient is laying comfortably in the bed. Offers no new complaints. No headache. Objective - Vital Signs Vital signs: Vital Signs Temp 97.8 F 04/24/21 15:00 Pulse 64 04/24/21 15:00 Resp 18 04/24/21 15:00 BP 188/74 04/24/21 15:00 Pulse Ox 94 L 04/24/21 15:00 Intake & Output 04/23/21 04/24/21 04/24/21 18:59 06:59 18:59 Intake Total 1000 380 Output Total 4 Balance 1000 376 Intake: Oral 1000 380 Output: Urine 4 Other: Voiding Method Diaper Diaper Diaper Incontinent Incontinent Incontinent # Voids 2 3 - Exam Mentation is intact. Muscle strength is normal. Tone of muscles is mildly increased. Rest of the examination is unchanged. - Labs CBC & Chem 7: 04/22/21 18:29 04/22/21 18:29 Labs: Abnormal Lab Results - Last 24 Hours (Table) 04/23/21 04/23/21 04/23/21 Range/Units 16:13 17:29 20:46 POC Glucose (mg/dL) 131 H 121 H (75-99) mg/dL Hemoglobin A1c 6.7 H (4.0-6.0) % 04/24/21 04/24/21 Range/Units 07:16 12:22 POC Glucose (mg/dL) 105 H 105 H (75-99) mg/dL Hemoglobin A1c (4.0-6.0) % Assessment and Plan Assessment: * Parkinson's disease, stable at this time. Current examination reveals fairly controlled parkinsonian symptoms. * Generalized weakness, unclear etiology. Examination is nonfocal. Patient denies any focal symptoms. * Diabetes Plan: * Patient's Parkinson's is fairly well controlled. We will continue Sinemet 25/100, 2.5 tablets 4 times a day. * B12 277, folate 17.80, TSH 5.26 and hemoglobin A1c 6.7. Patient was given vitamin B12 injection 1000 g IM. Thereafter he can take vitamin B12 1000 g orally daily. * Patient evaluated by Dr. Cruz. Patient is transferred to rehab at [facility]. * Continue aspirin 81 mg daily. * Neurologically clear for discharge.
== END 2021-04-24 16:09 | DRG 57 ==
LOC: EC 16:51 → 6NMEDSUR 19:53 → OBSVTOIN 04-24 10:53
PROVIDERS: ADMIT Hospitalist; ATTEND Hospitalist
DX: G20 Parkinson's disease (principal); J98.11 Atelectasis; R53.1 Weakness; K56.41 Fecal impaction; R53.81 Other malaise; Z20.822 Contact with and (suspected) exposure to COVID-19; R26.9 Unspecified abnormalities of gait and mobility; R41.89 Other symptoms and signs involving cognitive functions and awareness; N40.0 Benign prostatic hyperplasia without lower urinary tract symptoms; I10 Essential (primary) hypertension; E11.9 Type 2 diabetes mellitus without complications; Z79.899 Other long term (current) drug therapy; Z79.82 Long term (current) use of aspirin; Z91.02 Food additives allergy status; Z90.49 Acquired absence of other specified parts of digestive tract; Z91.013 Allergy to seafood; Z88.8 Allergy status to other drugs, medicaments and biological substances; Z79.4 Long term (current) use of insulin
CPT/HCPCS: 36415; 70450; 71046; 74018; 80053; 81001; 82607; 82746; 83036; 83605; 83735; 84443; 84484; 85025; 85610; 85730; 87635; 93005; 99285